=== PATIENT | female | born 1965 | race Caucasian/White ===

== ENCOUNTER 2019-09-06 03:47 | Emergency (ER) | payer OTHER ==
[~2019-09-06] VITALS: Ht 167.6 cm; Wt 108.9 kg
--- NOTE | 2019-09-06 03:47 | NUR ---
Patient to ER bed 5 to gown for evaluation. Side rails up.
[2019-09-06 03:52] VITALS: BP_SYST 132
[2019-09-06] MEDS ORDERED: IPRATROPIUM/ALBUTEROL SULFATE 3 ML AMPUL.NEB (DUONEB) INH ONE (04:00)
--- NOTE | 2019-09-06 04:00 | NUR ---
Dr. Garcia bedside for pt eval
--- NOTE | 2019-09-06 04:05 | NUR ---
Pt BIB self to ED C/O FLU LIKE SYMPTOMS FOR LAST 5 DAYS WITH WORSENING COUGH, +WHEEZING SOB WITH HOARSE DRY COUGH VSS no s/s of acute distress. No other complaints and or injuries noted Resting on gurney rails up
--- NOTE | 2019-09-06 04:08 | NUR ---
RT bedside for breathing Tx, well tolerated
[2019-09-06] MEDS ORDERED: methylPREDNISolone SOD SUCC/PF 62.5 MG/ML VIAL IM ONE (04:15)
[2019-09-06 05:21] VITALS: BP_SYST 130
--- NOTE | 2019-09-06 05:21 | NUR ---
Patient given written and verbal discharge instructions and verbalizes understanding. ER MD discussed with patient the results and treatment provided. Patient in stable condition. ID arm band removed. Rx of Prednisone, Promethazine with codeine, albuterol and zithromax given. Patient educated on pain management and to follow up with PMD. Pain Scale 0. Opportunity for questions provided and answered. Medication side effect fact sheet provided.
== END 2019-09-06 05:21 | disposition home or self-care (01) ==
LOC: SED 03:47
DX: J20.9 Acute bronchitis, unspecified (principal); I10 Essential (primary) hypertension; Z88.8 Allergy status to other drugs, medicaments and biological substances
CPT/HCPCS: 71045; 86710; 94640; 96372; 99284; J2930; J7620; 36415

== ENCOUNTER 2019-09-27 09:38 | Emergency (ER) | payer OTHER ==
[~2019-09-27] VITALS: Ht 167.6 cm; Wt 108.9 kg
[2019-09-27 09:40] VITALS: BP_SYST 137
--- NOTE | 2019-09-27 09:40 | NUR ---
Patient to ER bed 4 to gown for evaluation. Side rails up.
--- NOTE | 2019-09-27 09:45 | NUR ---
Patient presents to ER C/O RIGHT GREAT TOE pain. Patient A&Ox4, ambulatory to ER, afebrile, skin pink and warm, pain 10/10, nausea, denies V/D. Patient denies injury/trauma, patient states pain has been intermittent xSEVERAL DAYS and she has a hx of gout.
--- NOTE | 2019-09-27 09:47 | NUR ---
ER Dr. Staples at bedside examining patient.
[2019-09-27] MEDS ORDERED: ONDANSETRON 4 MG ODT TAB PO ONE (10:00)
[2019-09-27] MEDS ORDERED: MORPHINE 4 MG/ML INJ. SYRINGE IM ONE (10:00)
[2019-09-27] MEDS ORDERED: KETOROLAC TROMETHAMINE 60 MG/2 ML VIAL IM ONE (10:00)
[2019-09-27] MEDS ORDERED: MORPHINE 2 MG/ML INJ. SYRINGE ONE (10:24)
[2019-09-27 10:35] VITALS: BP_SYST 139
--- NOTE | 2019-09-27 10:35 | NUR ---
Patient given written and verbal discharge instructions and verbalizes understanding. ER MD discussed with patient the results and treatment provided. Patient in stable condition. ID arm band removed. Rx of NORCO & ZOFRAN given. Patient educated on pain management and to follow up with PMD. Pain Scale 2/10. Opportunity for questions provided and answered. Medication side effect fact sheet provided.
== END 2019-09-27 10:35 | disposition home or self-care (01) ==
LOC: SED 09:38
DX: M10.9 Gout, unspecified (principal); M79.674 Pain in right toe(s); I10 Essential (primary) hypertension; Z90.710 Acquired absence of both cervix and uterus; Z88.8 Allergy status to other drugs, medicaments and biological substances
CPT/HCPCS: 96372; 99284; J1885; J2270; Q0162

== ENCOUNTER 2020-05-03 23:35 | Emergency (ER) | payer OTHER ==
[~2020-05-03] VITALS: Ht 167.6 cm; Wt 108.9 kg
[2020-05-03 23:35] VITALS: BP_SYST 141
[2020-05-04 00:29] LABS: BASOPHILS # (AUTO) 0.1 K/uL (0.0-0.2); BASOPHILS % (AUTO) 0.8 % (0.0-2.0); EOSINOPHILS # (AUTO) 0.1 K/uL (0.0-0.4); HEMATOCRIT 39.7 % (36-48); HEMOGLOBIN 13.1 g/dL (12.0-16.0); LYMPHOCYTES # (AUTO) 2.9 K/uL (1.0-5.5); LYMPHOCYTES % (AUTO) 29.9 % (20.5-51.5); MEAN CORPUSCULAR HEMOGLOBIN 29 pg (27-31); MEAN CORPUSCULAR HGB CONC 33 % (32-36); MEAN CORPUSCULAR VOLUME 88 fL (79.0-98.0); MONOCYTES # (AUTO) 0.8 K/uL (0.0-1.0); MONOCYTES % (AUTO) 8.7 % (1.7-9.3); NEUTROPHILS # (AUTO) 5.8 K/uL (1.8-7.7); NEUTROPHILS % (AUTO) 59.6 % (40.0-70.0); PLATELET COUNT (AUTO) 328 K/uL (130-430); RED CELL DISTRIBUTION WIDTH 13.4 % (9.0-15.0); WHITE BLOOD COUNT (AUTO) 9.6 K/uL (4.8-10.8)
[2020-05-04] MEDS ORDERED: KETOROLAC TROMETHAMINE 30 MG VIAL IVP ONE (00:30)
[2020-05-04] MEDS ORDERED: ALLOPURINOL 300 MG TABLET (ZYLOPRIM) PO ONE (00:45)
[2020-05-04] MEDS ORDERED: COLCHICINE 0.6 MG TABLET PO ONE (00:45)
[2020-05-04] MEDS ORDERED: NACL 0.9% 1,000 ML IV ONE (01:00)
[2020-05-04 01:30] LABS: CREATININE 0.95 mg/dL (0.55-1.30); POTASSIUM 3.7 mmol/L (3.5-5.1); TOTAL BILIRUBIN 0.5 mg/dL (0.0-1.0)
[2020-05-04 01:31] LABS: ALBUMIN 3.8 g/dL (3.4-4.8); URIC ACID 7.7 mg/dL (2.4-7.0)
[2020-05-04] MEDS ORDERED: MORPHINE 4 MG/ML INJ. SYRINGE IVP ONE ×2 (01:45)
[2020-05-04] MEDS ORDERED: ONDANSETRON HCL 4 MG/2 ML VIAL IVP ONE ×3 (01:45→02:45)
[2020-05-04] MEDS ORDERED: methylPREDNISolone SOD SUCC 500 MG/VIAL (Solu-MEDROL) IV ONE (01:45)
[2020-05-04] MEDS ORDERED: methylPREDNISolone SOD SUCC/PF 62.5 MG/ML VIAL ONE (02:30)
[2020-05-04] MEDS ORDERED: ONDANSETRON HCL 4 MG/2 ML VIAL ONE (03:04)
[2020-05-04 03:15] VITALS: BP_SYST 138
== END 2020-05-04 03:15 | disposition home or self-care (01) ==
LOC: SED 23:35
DX: M10.9 Gout, unspecified (principal); I10 Essential (primary) hypertension; Z90.710 Acquired absence of both cervix and uterus; Z88.6 Allergy status to analgesic agent
CPT/HCPCS: 36415; 80053; 84550; 85025; 93971; 96361; 96374; 96375; 96376; 99284; J1885; J2270; J2405; J2930; J7030

== ENCOUNTER 2021-08-27 15:52 | Emergency (ER) | payer OTHER, SELFPAY ==
[~2021-08-27] VITALS: Ht 167.6 cm; Wt 113.4 kg
[2021-08-27 15:58] VITALS: BP_SYST 145
[2021-08-27] MEDS ORDERED: ALBMDI INH (16:10)
[2021-08-27] MEDS ORDERED: ZIT250 PO (16:10)
[2021-08-27] MEDS ORDERED: PRED20TA PO (16:10)
[2021-08-27] MEDS ORDERED: AMOX-426 PO (16:10)
[2021-08-27] MEDS ORDERED: IPRATROPIUM/ALBUTEROL SULFATE 3 ML AMPUL.NEB (DUONEB) INH ONE (16:15)
--- NOTE | 2021-08-27 16:15 | NUR ---
AT [facility]. PT RECEIVING ALBUTEROL NEB
[2021-08-27] MEDS ORDERED: PROM5SYR PO (16:26)
[2021-08-27 16:41] VITALS: BP_SYST 153
--- NOTE | 2021-08-27 16:43 | NUR ---
Patient given written and verbal discharge instructions and verbalizes understanding. BRITTANY CABRALES MD discussed with patient the results and treatment provided. Patient in stable condition. ID arm band removed. Rx of ALBUTEROLOL MDI, AUGMENTIN, PREDNISONE, PHERGAN AND CODEINE, ZITHROMAX given. Patient educated on pain management and to follow up with PMD. Pain Scale 5. Opportunity for questions provided and answered. Medication side effect fact sheet provided.
== END 2021-08-27 16:41 | disposition home or self-care (01) ==
LOC: SED 15:52
DX: U07.1 COVID-19 (principal); I10 Essential (primary) hypertension; Z88.8 Allergy status to other drugs, medicaments and biological substances; Z79.899 Other long term (current) drug therapy
CPT/HCPCS: 36415; 94640; 99283

== ENCOUNTER 2023-04-01 03:25 | Emergency (ER) | payer OTHER ==
[~2023-04-01] VITALS: Ht 167.6 cm; Wt 113.4 kg
[~2023-04-01 03:25] MED LIST: ALBMDI INH; AMOX-426 PO; PRED20TA PO; PROM5SYR PO; ZIT250 PO
[2023-04-01 03:39] VITALS: BP_SYST 130; PULSE 129; RESP 26; TEMP 97.6; O2SAT 96
[2023-04-01] MEDS ORDERED: ALBUTEROL SULFATE 0.083% 2.5 MG/3 ML VIAL.NEB INH ONE (03:45)
[2023-04-01] MEDS ORDERED: IPRATROPIUM BROM 0.5 MG/2.5 ML VIAL.NEB (ATROVENT) INH ONE (03:45)
[2023-04-01] MEDS ORDERED: methylPREDNISolone SOD SUCC/PF 62.5 MG/ML VIAL IVP ONE (03:45)
[2023-04-01] MEDS ORDERED: NS 1000 ML IV.SOLN IV ONE (03:45)
[2023-04-01] MEDS ORDERED: BENZONATATE 100 MG CAPSULE (TESSALON) PO ONE (04:00)
[2023-04-01 04:26] LABS: BASOPHILS # (AUTO) 0.1 K/uL (0.0-0.2); BASOPHILS % (AUTO) 0.8 % (0.0-2.0); EOSINOPHILS # (AUTO) 0.3 K/uL (0.0-0.4); EOSINOPHILS % (AUTO) 2.1 % (0.0-4.0); HEMATOCRIT 45.5 % (36-48); HEMOGLOBIN 14.5 g/dL (12.0-16.0); LYMPHOCYTES # (AUTO) 5.3 K/uL (1.0-5.5); LYMPHOCYTES % (AUTO) 38.6 % (20.5-51.5); MEAN CORPUSCULAR HEMOGLOBIN 28 pg (27-31); MEAN CORPUSCULAR HGB CONC 32 % (32-36); MEAN CORPUSCULAR VOLUME 89 fL (79.0-98.0); MONOCYTES # (AUTO) 0.9 K/uL (0.0-1.0); MONOCYTES % (AUTO) 6.8 % (1.7-9.3); NEUTROPHILS # (AUTO) 7.1 K/uL (1.8-7.7); NEUTROPHILS % (AUTO) 51.7 % (40.0-70.0); PLATELET COUNT (AUTO) 416 K/uL (130-430); RED BLOOD CELL COUNT(AUTO) 5.14 MIL/uL (4.2-6.2); RED CELL DISTRIBUTION WIDTH 14.8 % (9.0-15.0); WHITE BLOOD COUNT (AUTO) 13.7 K/uL (4.8-10.8)
[2023-04-01] MEDS ORDERED: BENZONATATE 100 MG CAPSULE (TESSALON) ONE (04:30)
[2023-04-01 04:41] LABS: ANION GAP 14 (5-15); CALCIUM 9.8 mg/dL (8.4-11.0); CARBON DIOXIDE 27 mmol/L (23-29); CHLORIDE 95 mmol/L (98-107); CREATININE 1.02 mg/dL (0.55-1.30); GFR AFRICAN AMERICAN 72 mL/min (>90); GLUCOSE 144 mg/dL (74-106); POTASSIUM 3.5 mmol/L (3.5-5.1); SODIUM SERUM 136 mmol/L (136-145); UREA NITROGEN, BLOOD 14 mg/dL (8-21)
[2023-04-01 04:48] LABS: ALANINE AMINOTRANSFERASE 49 U/L (12-78); ALBUMIN 4.3 g/dL (3.4-4.8); ASPARTATE AMINOTRANSFERASE 28 U/L (10-37); TOTAL BILIRUBIN 0.6 mg/dL (0.0-1.0)
[2023-04-01 04:50] LABS: GFR NON AFRICAN-AMERICAN 60 mL/min (>90)
[2023-04-01] MEDS ORDERED: cefTRIAXone 1 GM in D5W 50 ML IV ONE (05:00)
[2023-04-01] MEDS ORDERED: cefTRIAXone 1 GM VIAL ONE (05:20)
[2023-04-01 07:40] VITALS: BP_SYST 140; PULSE 104; RESP 26; TEMP 97.6; O2SAT 95
[2023-04-01] MEDS ORDERED: PRED20TA PO (07:43)
== END 2023-04-01 07:35 | disposition home or self-care (01) ==
LOC: SED 03:25
DX: U07.1 COVID-19 (principal); R06.02 Shortness of breath; R05.9 Cough, unspecified; E87.20 Acidosis, unspecified; I10 Essential (primary) hypertension; Z88.5 Allergy status to narcotic agent; Z88.8 Allergy status to other drugs, medicaments and biological substances; Z79.899 Other long term (current) drug therapy
CPT/HCPCS: 80053; 85025; 87040; 84484; 36415; 93005; 71045; 94640; 99291; 96361; 96365; 96375; 83605; J0696; J2930; J7613; J7030

== ENCOUNTER 2023-12-17 16:53 | Emergency (ER) | payer OTHER ==
[~2023-12-17] VITALS: Ht 167.6 cm; Wt 113.4 kg
[2023-12-17 16:58] VITALS: BP_SYST 175; PULSE 85; RESP 18; TEMP 97.7; O2SAT 97
[2023-12-17] MEDS ORDERED: ONDANSETRON HCL 4 MG/2 ML VIAL ONE (18:07)
[2023-12-17] MEDS: ONDANSETRON HCL 4 MG/2 ML VIAL IVP ONE (18:12)
[2023-12-17] MEDS: MORPHINE 2 MG/ML INJ. SYRINGE IVP ONE ×2 (18:12→18:51)
[2023-12-17 18:24] LABS: BASOPHILS # (AUTO) 0.1 K/uL (0.0-0.2); BASOPHILS % (AUTO) 0.9 % (0.0-2.0); EOSINOPHILS # (AUTO) 0.2 K/uL (0.0-0.4); EOSINOPHILS % (AUTO) 1.5 % (0.0-4.0); HEMATOCRIT 39.9 % (36-48); HEMOGLOBIN 13.3 g/dL (12.0-16.0); LYMPHOCYTES # (AUTO) 2.8 K/uL (1.0-5.5); LYMPHOCYTES % (AUTO) 25.4 % (20.5-51.5); MEAN CORPUSCULAR HEMOGLOBIN 29 pg (27-31); MEAN CORPUSCULAR HGB CONC 33 % (32-36); MEAN CORPUSCULAR VOLUME 87 fL (79.0-98.0); MONOCYTES # (AUTO) 0.6 K/uL (0.0-1.0); MONOCYTES % (AUTO) 5.7 % (1.7-9.3); NEUTROPHILS # (AUTO) 7.4 K/uL (1.8-7.7); NEUTROPHILS % (AUTO) 66.5 % (40.0-70.0); PLATELET COUNT (AUTO) 352 K/uL (130-430); RED BLOOD CELL COUNT(AUTO) 4.58 MIL/uL (4.2-6.2); RED CELL DISTRIBUTION WIDTH 14.8 % (9.0-15.0); WHITE BLOOD COUNT (AUTO) 11.2 K/uL (4.8-10.8)
[2023-12-17 18:40] LABS: ALBUMIN 3.9 g/dL (3.4-4.8); BILIRUBIN,DIRECT 0.1 mg/dL (0.0-0.3); CALCIUM 9.4 mg/dL (8.4-11.0); CREATININE 1.02 mg/dL (0.55-1.30); POTASSIUM 3.9 mmol/L (3.5-5.1); TOTAL BILIRUBIN 0.6 mg/dL (0.0-1.0); TOTAL PROTEIN, SERUM 7.5 g/dL (6.4-8.3)
[2023-12-17] MEDS ORDERED: iohexoL 350 mgI/mL, 100 ML INFUS..BTL IV ONE (18:57)
[2023-12-17] MEDS: KETOROLAC TROMETHAMINE 30 MG VIAL IVP ONE (20:14)
[2023-12-17] MEDS ORDERED: ZAN4 PO (20:15)
[2023-12-17] MEDS ORDERED: HYDR-3917 PO (20:15)
[2023-12-17] MEDS ORDERED: ONDA-8 TL (20:20)
[2023-12-17 20:30] VITALS: BP_SYST 126; PULSE 92; RESP 16; TEMP 97.4; O2SAT 97
== END 2023-12-17 20:30 | disposition home or self-care (01) ==
LOC: SED 16:53
DX: S29.012A Strain of muscle and tendon of back wall of thorax, initial encounter (principal); R07.9 Chest pain, unspecified; I10 Essential (primary) hypertension; Z88.5 Allergy status to narcotic agent; Z88.1 Allergy status to other antibiotic agents; Z79.899 Other long term (current) drug therapy; Z79.2 Long term (current) use of antibiotics; X58.XXXA Exposure to other specified factors, initial encounter; Y93.89 Activity, other specified; Y92.89 Other specified places as the place of occurrence of the external cause; Y99.8 Other external cause status
CPT/HCPCS: 99285; 71275; 96374; 96375; 80076; 80048; 85025; 85379; 36415; 74177; 96376; Q9967; J1885; J2405; J2270